=== PATIENT | female | born 1995 | race African-American/Black ===

== ENCOUNTER 2016-11-22 00:06 | Emergency (ER) | payer OTHER ==
[~2016-11-22 00:06] MED LIST: CIPRO PO; FLOMAX0.4 M1 PO; IBUPROFEN PO; LORTAB 5/500 TA1 TA1 PO; PHENERGAN25 M1 PO
== END 2016-11-22 00:25 | disposition left against medical advice (07) ==
LOC: CED 00:06
DX: Z53.21 Procedure and treatment not carried out due to patient leaving prior to being seen by health care provider (principal)

== ENCOUNTER 2017-01-12 21:16 | Emergency (ER) | payer OTHER | END 2017-01-12 23:20 | disposition home or self-care (01) | LOC: CED 21:16 → CFTX 21:16 | DX: N61.0 Mastitis without abscess (principal); F17.200 Nicotine dependence, unspecified, uncomplicated; Z88.0 Allergy status to penicillin; Z91.040 Latex allergy status | CPT/HCPCS: 84703; 99282 ==

== ENCOUNTER 2017-04-10 23:23 | Emergency (ER) | payer OTHER ==
[~2017-04-10] VITALS: Ht 149.9 cm; Wt 61.2 kg
[2017-04-10] MEDS ORDERED: KCL (23:50)
[2017-04-11 00:43] LABS: URINE SOURCE CLEAN CATCH
[2017-04-11 00:45] LABS: URINE APPEARANCE CLEAR; URINE BILIRUBIN NEG (NEG); URINE BLOOD NEG (NEG); URINE COLOR YELLOW; URINE GLUCOSE NEG (NORM); URINE KETONE NEG (NEG); URINE LEUKOCYTE ESTERASE TRACE (NEG); URINE NITRATE NEG (NEG); URINE PROTEIN NEG (NEG); URINE SPECIFIC GRAVITY <=1.005 (1.003-1.035); URINE UROBILINOGEN 0.2 MG/DL (NORM)
[2017-04-11 00:48] LABS: MICRO INDICATED? YES
[2017-04-11 00:49] LABS: CULTURE INDICATED? NO; URINE BACTERIA NEG (NEG); URINE MUCUS PRESENT; URINE RBC 0-2 /[HPF] (0-2); URINE SQUAMOUS EPITHELIAL CELL OCCAS /[HPF]
== END 2017-04-11 01:32 | disposition home or self-care (01) ==
LOC: SED 23:23
PROVIDERS: Nurse Practitioner
DX: B37.3 Candidiasis of vulva and vagina (principal); F17.210 Nicotine dependence, cigarettes, uncomplicated; Z88.0 Allergy status to penicillin; Z91.040 Latex allergy status
CPT/HCPCS: 81003; 84703; 99283